=== PATIENT | female | born 1945 | race Caucasian/White ===

== ENCOUNTER 2016-07-31 15:59 | Inpatient (IN) | payer BC, MEDICARE ==
[~2016-07-31 15:59] MED LIST: AMIODARONE HCL200 MG PO; ASPIRIN325 MG PO; COUMADIN5 M1 PO; ENALAPRIL MALEA20 MG PO; HYDROCHLOROTHIA50 MG PO; K-TAB ER20 MEQ PO; LASIX40 MG PO; LOVENOX100 MG/ML SQ; NORVASC5 M1 PO; PRILOSEC20 MG PO; VASOTEC10 MG PO; ZEBETA10 M1 PO
[2016-07-31] MEDS ORDERED: BIOTIN1 M2 PO (17:31)
[2016-07-31] MEDS ORDERED: LASIX40 M1 PO (17:33)
[2016-07-31] MEDS ORDERED: CALCIUM MAGNES1 EAC2 PO (17:33)
[2016-07-31] MEDS ORDERED: PLAVIX75 M1 PO (17:33)
[2016-07-31] MEDS ORDERED: MOBIC7.5 M2 PO (17:34)
[2016-07-31] MEDS ORDERED: KRILL OIL PO (17:34)
[2016-07-31] MEDS ORDERED: COUMADIN4 M1 PO (17:34)
[2016-07-31] MEDS ORDERED: PRINIVIL10 M1 PO (17:34)
[2016-07-31] MEDS ORDERED: PROTONIX40 M2 PO (17:34)
[2016-07-31] MEDS ORDERED: LIPITOR20 M1 PO (17:35)
[2016-07-31] MEDS ORDERED: ASPIRIN EC81 MG PO (17:35)
[2016-07-31] MEDS ORDERED: AMIODARONE HCL200 M1 PO (18:31)
[2016-07-31 18:45] LABS: BASO % 0.5 % (0-2); EOS % 1.1 % (0-7); EOSINOPHIL ABSOLUTE COUNT 0.1 tho/cmm (0.0-0.7); HGB-HEMOGLOBIN 7.5 gm/dl (12.0-15.5); LYMPH % 18.7 % (20-45); MCH (MEAN CORPUSCULAR HGB) 29.5 pg (28.0-32.0); MCV (MEAN CELL VOLUME) 89.4 fl (82.0-96.0); MEAN PLATELET VOLUME 12.1 cmc (9.4-12.4); MONO % 6.8 % (0-12); MONOCYTE ABSOLUTE COUNT 0.4 tho/cmm (0.0-1.2); NEUTROPHILS % 72.9 % (40-80); PLATELET COUNT 210 tho/cmm (150-450); RED BLOOD COUNT 2.54 mil/cmm (4.00-5.20); RED CELL DISTRIBUTION WIDTH 14.5 % (12.4-16.4); WHITE BLOOD COUNT 5.5 tho/cmm (4.0-10.0)
[2016-07-31 18:48] LABS: INR 3.5 INR (0.9-1.1); PROTHROMBIN TIME 42.1 SECONDS (9.0-13.6)
[2016-07-31 18:57] LABS: ANION GAP 14 mmol/L (0-20); BLOOD UREA NITROGEN 35 mg/dl (6-24); CALCIUM 8.1 mg/dl (8.5-10.5); CARBON DIOXIDE-VENOUS 27 mmol/L (22-32); CHLORIDE 109 mmol/l (96-110); CREATININE 1.88 mg/dl (0.50-1.10); GLUCOSE 98 mg/dL (70-110); POTASSIUM 3.9 mmol/L (3.7-5.1); SODIUM 146 mmol/L (135-145); eGFR VALUE FOR BLACK 30 mL/Min
[2016-07-31 19:03] LABS: HCT-HEMATOCRIT 22.7 % (34.0-49.0)
[2016-08-01 01:57] LABS: INR 1.8 INR (0.9-1.1)
[2016-08-01 05:53] LABS: INR 1.8 INR (0.9-1.1); PROTHROMBIN TIME 21.6 SECONDS (9.0-13.6)
[2016-08-01 05:58] LABS: ANION GAP 15 mmol/L (0-20); BLOOD UREA NITROGEN 28 mg/dl (6-24); CARBON DIOXIDE-VENOUS 24 mmol/L (22-32); CHLORIDE 115 mmol/l (96-110); CREATININE 1.67 mg/dl (0.50-1.10); GLUCOSE 86 mg/dL (70-110); POTASSIUM 3.5 mmol/L (3.7-5.1); SODIUM 150 mmol/L (135-145); eGFR VALUE FOR BLACK 35 mL/Min
[2016-08-01 10:11] LABS: INR 1.6 INR (0.9-1.1); PROTHROMBIN TIME 18.8 SECONDS (9.0-13.6)
[2016-08-01 21:01] LABS: INR 1.6 INR (0.9-1.1)
[2016-08-01 23:13] LABS: HCT-HEMATOCRIT 30.7 % (34.0-49.0); MCV (MEAN CELL VOLUME) 87.5 fl (82.0-96.0); RED CELL DISTRIBUTION WIDTH 14.8 % (12.4-16.4)
[2016-08-01 23:31] LABS: HGB-HEMOGLOBIN 10.6 gm/dl (12.0-15.5)
[2016-08-02 05:44] LABS: BASO % 0.4 % (0-2); EOS % 1.5 % (0-7); EOSINOPHIL ABSOLUTE COUNT 0.1 tho/cmm (0.0-0.7); HCT-HEMATOCRIT 28.5 % (34.0-49.0); HGB-HEMOGLOBIN 9.7 gm/dl (12.0-15.5); IMMATURE GRANULOCYTES ABSOLUTE 0.03 tho/cmm (0-0.03); IMMATURE GRANULOCYTES PERCENT 0.4 % (0-0.3); LYMPH % 13.8 % (20-45); MCH (MEAN CORPUSCULAR HGB) 29.7 pg (28.0-32.0); MCV (MEAN CELL VOLUME) 87.2 fl (82.0-96.0); MEAN PLATELET VOLUME 12.2 cmc (9.4-12.4); MONO % 11.2 % (0-12); MONOCYTE ABSOLUTE COUNT 0.8 tho/cmm (0.0-1.2); NEUTROPHILS % 72.7 % (40-80); PLATELET COUNT 133 tho/cmm (150-450); RED BLOOD COUNT 3.27 mil/cmm (4.00-5.20); RED CELL DISTRIBUTION WIDTH 14.7 % (12.4-16.4); WHITE BLOOD COUNT 6.9 tho/cmm (4.0-10.0)
[2016-08-02 05:50] LABS: INR 1.6 INR (0.9-1.1); PROTHROMBIN TIME 19.4 SECONDS (9.0-13.6)
[2016-08-02 05:56] LABS: ANION GAP 11 mmol/L (0-20); BLOOD UREA NITROGEN 17 mg/dl (6-24); CALCIUM 7.8 mg/dl (8.5-10.5); CARBON DIOXIDE-VENOUS 26 mmol/L (22-32); CHLORIDE 110 mmol/l (96-110); CREATININE 1.71 mg/dl (0.50-1.10); GLUCOSE 92 mg/dL (70-110); POTASSIUM 3.6 mmol/L (3.7-5.1); SODIUM 143 mmol/L (135-145); eGFR VALUE FOR BLACK 34 mL/Min
[2016-08-02 17:51] LABS: HCT-HEMATOCRIT 30.5 % (34.0-49.0); HGB-HEMOGLOBIN 10.3 gm/dl (12.0-15.5); MCV (MEAN CELL VOLUME) 88.2 fl (82.0-96.0)
[2016-08-03 06:14] LABS: HCT-HEMATOCRIT 28.3 % (34.0-49.0); HGB-HEMOGLOBIN 9.6 gm/dl (12.0-15.5); MCV (MEAN CELL VOLUME) 88.2 fl (82.0-96.0); RED CELL DISTRIBUTION WIDTH 14.7 % (12.4-16.4)
[2016-08-03 06:16] LABS: INR 1.9 INR (0.9-1.1); PROTHROMBIN TIME 22.9 SECONDS (9.0-13.6)
[2016-08-03 06:24] LABS: ANION GAP 12 mmol/L (0-20); BLOOD UREA NITROGEN 15 mg/dl (6-24); CALCIUM 8.3 mg/dl (8.5-10.5); CARBON DIOXIDE-VENOUS 26 mmol/L (22-32); CHLORIDE 110 mmol/l (96-110); CREATININE 1.56 mg/dl (0.50-1.10); GLUCOSE 93 mg/dL (70-110); POTASSIUM 3.5 mmol/L (3.7-5.1); SODIUM 144 mmol/L (135-145); eGFR VALUE FOR BLACK 38 mL/Min
[2016-08-03 18:29] LABS: HGB-HEMOGLOBIN 10.3 gm/dl (12.0-15.5); MCV (MEAN CELL VOLUME) 89.1 fl (82.0-96.0); RED CELL DISTRIBUTION WIDTH 14.7 % (12.4-16.4)
[2016-08-04 05:38] LABS: HCT-HEMATOCRIT 31.2 % (34.0-49.0); HGB-HEMOGLOBIN 10.2 gm/dl (12.0-15.5); MCV (MEAN CELL VOLUME) 89.9 fl (82.0-96.0); RED CELL DISTRIBUTION WIDTH 14.7 % (12.4-16.4)
[2016-08-04 05:49] LABS: ANION GAP 12 mmol/L (0-20); BLOOD UREA NITROGEN 17 mg/dl (6-24); CALCIUM 8.2 mg/dl (8.5-10.5); CARBON DIOXIDE-VENOUS 28 mmol/L (22-32); CHLORIDE 107 mmol/l (96-110); CREATININE 1.61 mg/dl (0.50-1.10); GLUCOSE 91 mg/dL (70-110); POTASSIUM 3.5 mmol/L (3.7-5.1); SODIUM 143 mmol/L (135-145); eGFR VALUE FOR BLACK 37 mL/Min
[2016-08-04 18:09] LABS: HGB-HEMOGLOBIN 11.3 gm/dl (12.0-15.5); MCV (MEAN CELL VOLUME) 90.9 fl (82.0-96.0); RED CELL DISTRIBUTION WIDTH 14.8 % (12.4-16.4)
[2016-08-05 06:28] LABS: BASO % 0.4 % (0-2); EOS % 4.2 % (0-7); EOSINOPHIL ABSOLUTE COUNT 0.3 tho/cmm (0.0-0.7); HCT-HEMATOCRIT 31.8 % (34.0-49.0); HGB-HEMOGLOBIN 10.5 gm/dl (12.0-15.5); IMMATURE GRANULOCYTES ABSOLUTE 0.01 tho/cmm (0-0.03); IMMATURE GRANULOCYTES PERCENT 0.1 % (0-0.3); LYMPH % 10.6 % (20-45); LYMPH ABSOLUTE COUNT 0.7 tho/cmm (0.8-4.5); MCH (MEAN CORPUSCULAR HGB) 29.9 pg (28.0-32.0); MCV (MEAN CELL VOLUME) 90.6 fl (82.0-96.0); MEAN PLATELET VOLUME 11.4 cmc (9.4-12.4); MONO % 9.3 % (0-12); MONOCYTE ABSOLUTE COUNT 0.6 tho/cmm (0.0-1.2); NEUTROPHILS % 75.4 % (40-80); PLATELET COUNT 188 tho/cmm (150-450); RED BLOOD COUNT 3.51 mil/cmm (4.00-5.20); RED CELL DISTRIBUTION WIDTH 14.5 % (12.4-16.4); WHITE BLOOD COUNT 6.7 tho/cmm (4.0-10.0)
[2016-08-05 06:37] LABS: ANION GAP 12 mmol/L (0-20); BLOOD UREA NITROGEN 24 mg/dl (6-24); CALCIUM 8.4 mg/dl (8.5-10.5); CARBON DIOXIDE-VENOUS 28 mmol/L (22-32); CHLORIDE 106 mmol/l (96-110); CREATININE 1.53 mg/dl (0.50-1.10); GLUCOSE 96 mg/dL (70-110); POTASSIUM 3.9 mmol/L (3.7-5.1); SODIUM 142 mmol/L (135-145); eGFR VALUE FOR BLACK 39 mL/Min
[2016-08-05 07:47] LABS: INR 1.2 INR (0.9-1.1); PROTHROMBIN TIME 13.7 SECONDS (9.0-13.6)
== END 2016-08-05 14:40 | DRG 377 ==
LOC: PCUB 15:59
PROVIDERS: Family Medicine; Internal Medicine Cardiovascular Disease; Internal Medicine Gastroenterology; Registered Nurse; ADMIT Family Medicine
PROC: 30233L1 Transfusion of Nonautologous Fresh Plasma into Peripheral Vein, Percutaneous Approach (ICD-10-PCS; 2016-07-31)
PROC: 30233K1 Transfusion of Nonautologous Frozen Plasma into Peripheral Vein, Percutaneous Approach (ICD-10-PCS; 2016-07-31)
PROC: 0D5H8ZZ Destruction of Cecum, Via Natural or Artificial Opening Endoscopic (ICD-10-PCS; principal; 2016-08-01)
PROC: 30233N1 Transfusion of Nonautologous Red Blood Cells into Peripheral Vein, Percutaneous Approach (ICD-10-PCS; 2016-08-01)
PROC: 30233N1 Transfusion of Nonautologous Red Blood Cells into Peripheral Vein, Percutaneous Approach (ICD-10-PCS; 2016-08-01)
PROC: 30233N1 Transfusion of Nonautologous Red Blood Cells into Peripheral Vein, Percutaneous Approach (ICD-10-PCS; 2016-08-01)
PROC: 30233N1 Transfusion of Nonautologous Red Blood Cells into Peripheral Vein, Percutaneous Approach (ICD-10-PCS; 2016-08-01)
PROC: 0W3P8ZZ Control Bleeding in Gastrointestinal Tract, Via Natural or Artificial Opening Endoscopic (ICD-10-PCS; 2016-08-01)
PROC: 30233N1 Transfusion of Nonautologous Red Blood Cells into Peripheral Vein, Percutaneous Approach (ICD-10-PCS; 2016-08-02)
DX: K55.21 Angiodysplasia of colon with hemorrhage (principal); J96.01 Acute respiratory failure with hypoxia; N17.9 Acute kidney failure, unspecified; E87.0 Hyperosmolality and hypernatremia; D62 Acute posthemorrhagic anemia; E87.70 Fluid overload, unspecified; I50.32 Chronic diastolic (congestive) heart failure; K92.1 Melena; D64.9 Anemia, unspecified; I48.0 Paroxysmal atrial fibrillation; K21.9 Gastro-esophageal reflux disease without esophagitis; M19.90 Unspecified osteoarthritis, unspecified site; G47.33 Obstructive sleep apnea (adult) (pediatric); I08.1 Rheumatic disorders of both mitral and tricuspid valves; Z87.891 Personal history of nicotine dependence; Z72.89 Other problems related to lifestyle; Z79.01 Long term (current) use of anticoagulants
CPT/HCPCS: C1751; C9113; J1940; J3430; J7030; P9016; P9017